=== PATIENT | male | born 1975 | race Caucasian/White ===

== ENCOUNTER 2020-07-22 16:53 | Emergency (ER) | payer MEDICAID ==
[~2020-07-22] VITALS: Ht 188 cm; Wt 113.4 kg
[2020-07-22] MEDS ORDERED: GINGER250 MG PO (22:42)
== END 2020-07-22 22:34 | disposition home or self-care (01) ==
LOC: ED 16:53
DX: K80.20 Calculus of gallbladder without cholecystitis without obstruction (principal); I10 Essential (primary) hypertension; E11.9 Type 2 diabetes mellitus without complications; Z87.891 Personal history of nicotine dependence; Z88.8 Allergy status to other drugs, medicaments and biological substances; Z79.899 Other long term (current) drug therapy
CPT/HCPCS: 74177; 80053; 81001; 83690; 85025; 99284-25; Q9967